=== PATIENT | male | born 1970 | race Caucasian/White ===

== ENCOUNTER → 2018-05-06 | Outpatient (CLI) | payer OTHER ==
--- NOTE | 2018-05-06 17:06 | DIAGNOSTIC IMAGING REPORT ---
ULTRASOUND VENOUS DOPP LOWER EXT UNILAT CLINICAL HISTORY: Right leg pain and swelling. COMPARISON STUDY: August 2008 FINDINGS: Real-time and color flow Doppler imaging were performed. Flow was seen within the femoral, popliteal and calf veins with no intraluminal thrombus demonstrated. The saphenous vein is patent. No soft tissue masses were visualized within the right calf at the point of maximal tenderness. IMPRESSION: No evidence of right lower extremity DVT. Electronically signed by: Anthony Martinez M.D. 05/06/2018 5:05 PM Dictated Date/Time: 05/06/2018 5:04 PM
== END | disposition home or self-care (01) ==
LOC: C.ULTR 16:11
PROVIDERS: ATTEND Physician Assistant
DX: R60.0 Localized edema (principal)